=== PATIENT | female | born 1985 | race Two or more races ===

== ENCOUNTER 2016-12-31 06:24 | Inpatient (IN) | payer MEDICAID ==
[2016-12-30 10:27] LABS: ABSOLUTE BASOPHILS # (AUTO) 0.1 10^3/uL (0.0-0.2); ABSOLUTE EOSINOPHILS # (AUTO) 0.2 10^3/uL (0.0-0.6); ABSOLUTE LYMPHOCYTES (AUTO) 2.1 10^3/uL (0.5-4.7); ABSOLUTE MONOCYTES (AUTO) 0.8 10^3/uL (0.1-1.4); ABSOLUTE NEUT (AUTO) 9.6 10^3/uL (1.7-8.2); BASOPHILS % (AUTO) 0.4 % (0-2); EOSINOPHILS % (AUTO) 1.5 % (0-6); HEMATOCRIT 34.3 % (36.0-47.0); HEMOGLOBIN 10.3 g/dL (12.0-15.5); HGB HCT DIFFERENCE -3.4; LYMPHOCYTES % (AUTO) 16.7 % (13-45); MEAN CORPUSCULAR HEMOGLOBIN 19.2 pg (27.0-33.4); MEAN CORPUSCULAR HGB CONC 30.2 g/dL (32.0-36.0); MONOCYTES % (AUTO) 6.3 % (3-13); RED CELL DISTRIBUTION WIDTH 16.7 % (11.5-14.0); SEGMENTED NEUTROPHILS % (AUTO) 75.1 % (42-78); WHITE BLOOD COUNT 12.8 10^3/uL (4.0-10.5)
[2016-12-30 10:49] LABS: TOXIC GRANULATION 1+
[2016-12-30 10:50] LABS: ANISOCYTOSIS 1+; MEAN CORPUSCULAR VOLUME 64 fl (80-97); MICROCYTOSIS 3+; OVALOCYTES SLIGHT; POIKILOCYTOSIS SLIGHT
[2016-12-30 11:11] LABS: APPEARANCE,URINE SLIGHTLY-CLOUDY; BILIRUBIN,URINE NEGATIVE (NEGATIVE); GLUCOSE, URINE NEGATIVE (NEGATIVE); KETONES,URINE NEGATIVE (NEGATIVE); LEUKOCYTE ESTERASE,URINE MODERATE (NEGATIVE); NITRITE,URINE NEGATIVE (NEGATIVE); PROTEIN,URINE NEGATIVE (NEGATIVE); URINE SPECIFIC GRAVITY 1.027; UROBILINOGEN,URINE NEGATIVE mg/dL (<2.0)
[2016-12-30 11:23] LABS: URINE BARBITURATES SCREEN NEGATIVE; URINE METHADONE SCREEN NEGATIVE; URINE OPIATES LOW NEGATIVE; URINE PHENCYCLIDINE SCREEN NEGATIVE
[~2016-12-31 06:24] MED LIST: LACTATED RINGERS 1000 ML IV PRN; LIDOCAINE 0.5% INJ-PF (5 MG/ML) 50 ML SDV SUBCUT PRN; RINGERS SOLUTION,LACTATED 1,000 ML IV PRN
[2016-12-31] MEDS ORDERED: OXYTOCIN 10 UNIT/ML VIAL ONE (06:59)
[2016-12-31] MEDS ORDERED: MIDAZOLAM 2 MG/2 ML INJ ONE (07:00)
[2016-12-31] MEDS ORDERED: EPHEDRINE SULFATE INJ 50 MG/1 ML AMPULE ONE (07:00)
[2016-12-31] MEDS ORDERED: FENTANYL CITRATE INJ/PF 100 MCG/2 ML AMPUL ONE (07:00)
[2016-12-31] MEDS ORDERED: FENTANYL CITRATE INJ/PF 250 MCG/5 ML AMPULE ONE (07:00)
[2016-12-31] MEDS ORDERED: ONDANSETRON HCL INJ/PF 4 MG/2 ML SDV ONE (07:01)
[2016-12-31] MEDS ORDERED: OXYTOCIN/NORMAL SALINE 20 UNIT/1,000 ML RTUINJ ONE (07:01)
[2016-12-31] MEDS ORDERED: CLINDAMYCIN 900 MG/D5W RTU 50 ML IV PRN (08:07)
[2016-12-31] MEDS ORDERED: PROMETHAZINE HCL INJ 25 MG/1 ML VIAL IV PRN (09:59)
[2016-12-31] MEDS ORDERED: MEPERIDINE HCL/PF INJ 25 MG/1 ML DISP.SYRIN IV PRN (09:59)
[2016-12-31] MEDS ORDERED: FENTANYL CITRATE INJ/PF 100 MCG/2 ML AMPUL IV PRN ×3 (09:59)
[2016-12-31] MEDS ORDERED: DIPHENHYDRAMINE HCL 50 MG/ML VIAL IV PRN (09:59)
[2016-12-31] MEDS ORDERED: MORPHINE SULFATE 10 MG/ML INJ IV PRN ×2 (09:59→17:59)
[2016-12-31] MEDS ORDERED: NALBUPHINE HCL INJ 10 MG/1 ML AMPULE IM ONE (10:00)
--- NOTE | 2016-12-31 10:48 | OPERATIVE REPORT E ---
Operative Report NAME: MARIA FERNANDA TYSON : 1985 AGE: 31Y DATE OF SURGERY: 12/31/2016 ROOM: 218 PREOPERATIVE DIAGNOSES: 1. IUP at 39 weeks. 2. Previous section x2. 3. Undesired fertility. POSTOPERATIVE DIAGNOSES: 1. IUP at 39 weeks. 2. Previous section x2. 3. Undesired fertility. TECHNICAL PROCEDURE: Low-transverse hysterotomy and section with Oracle bilateral tubal ligation. SURGEON: GENEVIEVE APONTE M.D. ANESTHESIA: Dr. Quintero with spinal. FINDINGS: Male cephalic presentation with Apgars of 8 and 9. COMPLICATIONS: None. ESTIMATED BLOOD LOSS: 600 mL. SPECIMENS REMOVED: Bilateral fallopian tubes. PROCEDURE IN DETAIL: Patient was taken to the operating room, prepared and draped in a normal sterile fashion in a supine position with a leftward tilt. A transverse skin incision was made with a scalpel and carried through to the underlying layer of fascia with the same scalpel. The fascia was incised in the midline and extended laterally. The rectus muscle was dissected from the fascia sharply with Nahun. The rectus muscle was divided and the peritoneal cavity was entered bluntly with good visualization of the bladder and the uterus. A bladder blade was inserted. The hysterotomy was nicked with a scalpel and extended laterally with surgeon finger fracture. The amniotomy was performed with a hemostat and the infant was then delivered atraumatically. The nose and mouth were suctioned with a suction bulb, the cord was clamped and cut, and the was handed off to awaiting law tutor. Cord blood was collected. The placenta was removed manually. The uterus was exteriorized and cleared of clots and debris. The hysterotomy was closed with 0 Monocryl in a running, locked fashion. A second layer was used in an imbricating stitch to ensure hemostasis. Attention was then turned to the tubal ligation where the left fallopian tube was grasped with a Steffany and the mesosalpinx was divided with the Bovie. A large portion of the tube was tied off with 2 pieces of 2-0 chromic and the intermediate section was removed with Metzenbaums. The pedicles were Bovied for hemostasis. This was repeated on the right without any difficulty. The uterus was then returned to the abdomen. The peritoneal cavity was cleared of clots and debris. The rectus muscle and peritoneum were reapproximated with a mattress stitch of 2-0 chromic. The fascia was closed with 0 Vicryl. The subcutaneous layer was closed with plain catgut. The skin was closed with 4-0 Vicryl. The patient tolerated the procedure well. Sponge, lap and needle counts were correct x2 and the patient was taken to recovery in stable condition. DICTATING PHYSICIAN: GENEVIEVE APONTE M.D. [id number] PHY#: [id number] ID: [id number] JOB#: [id number] ACCT: [id number] cc:GENVEIEVE APONTE M.D. >
[2016-12-31] MEDS: FENTANYL CITRATE INJ/PF 100 MCG/2 ML AMPUL ONE ×4 (11:25→12:06)
[2016-12-31] MEDS ORDERED: DIPH/PERTUSS(ACELL)/TETANUS VAC/PF 0.5 ML SYR (>=10YO) IM PRN (13:39)
[2016-12-31] MEDS ORDERED: MORPHINE SULFATE 10 MG/ML INJ IM PRN (13:39)
[2016-12-31] MEDS ORDERED: OXYTOCIN/NORMAL SALINE 20 UNIT/1,000 ML RTUINJ INJ PRN (13:39)
[2016-12-31] MEDS ORDERED: OXYCODONE-ACETAMINOPHEN 5-325 MG TABLET PO PRN (13:39)
[2016-12-31] MEDS ORDERED: SIMETHICONE 80 MG TAB.CHEW PO PRN (13:39)
[2016-12-31] MEDS ORDERED: PROMETHAZINE HCL INJ 25 MG/1 ML VIAL IM PRN (13:39)
[2016-12-31] MEDS ORDERED: MEASLES,MUMPS&RUBELLA VACC/PF 0.5 ML VIAL SUBCUT PRN (13:39)
[2016-12-31] MEDS ORDERED: ACETAMINOPHEN 325 MG TABLET PO PRN (13:39)
[2016-12-31] MEDS ORDERED: ACETAMINOPHEN 100 ML IV ONE (14:00)
[2016-12-31] MEDS: KETOROLAC TROMETHAMINE INJ/PF 30 MG/1 ML SDV IV SCH ×2 (14:01→21:45)
[2016-12-31 15:40] LABS: PATH REVIEW PATHOLOGIST REVIEWED
[2016-12-31] MEDS: OXYCODONE-ACETAMINOPHEN 5-325 MG TABLET PO PRN ×2 (16:32→20:33)
[2016-12-31] MEDS: DOCUSATE SODIUM 100 MG CAPSULE PO SCH (17:18)
[2016-12-31] MEDS ORDERED: HYDROMORPHONE HCL INJ/PF 2 MG/ML AMPULE ONE (22:43)
[2016-12-31] MEDS ORDERED: HYDROMORPHONE HCL INJ/PF 2 MG/ML AMPULE IV ONE (22:45)
[2017-01-01] MEDS: OXYCODONE-ACETAMINOPHEN 5-325 MG TABLET PO PRN ×2 (01:47→06:43)
[2017-01-01] MEDS: KETOROLAC TROMETHAMINE INJ/PF 30 MG/1 ML SDV IV SCH (05:23)
[2017-01-01 08:00] LABS: HEMATOCRIT 28.5 % (36.0-47.0); HEMOGLOBIN 8.7 g/dL (12.0-15.5); HGB HCT DIFFERENCE -2.4; MEAN CORPUSCULAR HEMOGLOBIN 19.4 pg (27.0-33.4); MEAN CORPUSCULAR HGB CONC 30.6 g/dL (32.0-36.0); MEAN CORPUSCULAR VOLUME 64 fl (80-97); RED BLOOD COUNT 4.48 10^6/uL (3.72-5.28); RED CELL DISTRIBUTION WIDTH 16.7 % (11.5-14.0); WHITE BLOOD COUNT 10.9 10^3/uL (4.0-10.5)
[2017-01-01] MEDS: DOCUSATE SODIUM 100 MG CAPSULE PO SCH ×2 (09:13→17:38)
--- NOTE | 2017-01-01 09:39 | PDOC PROGRESS REPORT ---
Subjective-OB Subjective: Post Delivery Day: 31 year old. Denies any needs at this time. Has had some dizziness, thinking due to pain meds. Physical Exam (OB) Vital Signs: Temp Pulse Resp BP Pulse Ox 98.4 F 87 16 100/59 L 100 01/01/17 07:47 01/01/17 09:00 01/01/17 08:00 01/01/17 09:00 01/01/17 07:47 Intake & Output 12/31/16 01/01/17 01/02/17 06:59 06:59 06:59 Intake Total 4750 120 Output Total 2580 Balance 2170 120 Weight 114.31 kg 113.398 kg - Dressing Removed: No - honeycomb post op dressing Incision: Dressing Note: Some bright red bleeding under opsite dressing. - Lochia Lochia Amount: Small 10-25 ml Lochia Color: Rubra/Red - Abdomen Description: Tender, Soft Hernia Present: No Bowel Sounds: Hypoactive Flatus Presence: Absent Stool: No Fundal Description: Midline Fundal Height: u/u - u/2 Objective-Diagnostic Laboratory: 01/01/17 07:40 12/30/16 01/01/17 09:54 07:40 WBC 12.8 H 10.9 H RBC 5.40 H 4.48 Hgb 10.3 L 8.7 L Hct 34.3 L 28.5 L MCV 64 L 64 L MCH 19.2 L 19.4 L MCHC 30.2 L 30.6 L RDW 16.7 H 16.7 H Plt Count 333 229 Seg Neutrophils % 75.1 Lymphocytes % 16.7 Monocytes % 6.3 Eosinophils % 1.5 Basophils % 0.4 Absolute Neutrophils 9.6 H Absolute Lymphocytes 2.1 Absolute Monocytes 0.8 Absolute Eosinophils 0.2 Absolute Basophils 0.1
[2017-01-01] MEDS: PRENATAL VITAMIN W-O CA NO5/FE FUMARATE/FA CAPSULE PO SCH (10:46)
[2017-01-01] MEDS: IBUPROFEN 800 MG TABLET PO SCH ×2 (11:35→17:37)
[2017-01-01] MEDS ORDERED: OXYCODONE HCL IR 5 MG TABLET PO PRN (11:52)
[2017-01-01] MEDS: OXYCODONE HCL IR 5 MG TABLET PO PRN ×3 (12:22→20:51)
[2017-01-02] MEDS: OXYCODONE HCL IR 5 MG TABLET PO PRN ×3 (00:44→10:07)
[2017-01-02] MEDS: IBUPROFEN 800 MG TABLET PO SCH ×3 (00:44→11:25)
[2017-01-02 09:37] VITALS: BP 94/58
[2017-01-02] MEDS: DOCUSATE SODIUM 100 MG CAPSULE PO SCH (10:04)
[2017-01-02] MEDS: PRENATAL VITAMIN W-O CA NO5/FE FUMARATE/FA CAPSULE PO SCH (10:04)
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
--- NOTE | 2017-01-22 09:22 | PDOC DELIVERY SUMMARY ---
Delivery Summary - Maternal Hx : V Hx # Term Pregnancies: 2 Hx Total # of Abortions (Sponateous & Elective): 2 ORALIA: 01/07/17 Gestational Age: 39 Time of Rupture: 09:41 Fluids: Clear - Delivery Presentation: Vertex Heart Rate Monitoring: Done Pre-Operatively Support Person Present: Yes Location: OR : Scheduled Placenta: Within Normal Limits Delivery of Placenta Date: 12/31/16 Delivery of Placenta Time: 09:44 - Medications Type of Anesthesia:: Spinal - Assess and Care Baby 1 Male Delivery of Date: 12/31/16 Delivery of Time: 09:42 at 1 minute: 8 at 5 minutes: 9 Preprinted Number On Band: [id number] Infant Skin to Skin: No To Nursery At: 09:48 Mode of Transport: Bassinet Infant Delivery Weight: 3560 kg Delivery Length: 20.5 in - Delivery Personnel Adjunct Spanish Instructor: MIRIAM REDMAN Nursery RN: TRINIDAD MANZO MD: GENEVIEVE APONTE
== END 2017-01-02 16:59 | disposition home or self-care (01) | DRG 765 ==
LOC: 2S 06:24
PROVIDERS: ADMIT Obstetrics & Gynecology; ATTEND Obstetrics & Gynecology
PROC: 0UB70ZZ Excision of Bilateral Fallopian Tubes, Open Approach (ICD-10-PCS; 2016-12-31)
PROC: 4A1HXCZ Monitoring of Products of Conception, Cardiac Rate, External Approach (ICD-10-PCS; 2016-12-31)
PROC: 10D00Z1 Extraction of Products of Conception, Low, Open Approach (ICD-10-PCS; principal; 2016-12-31 09:30)
PROC: 3E0234Z Introduction of Serum, Toxoid and Vaccine into Muscle, Percutaneous Approach (ICD-10-PCS; 2017-01-02)
DX: O34.211 Maternal care for low transverse scar from previous cesarean delivery (principal); D62 Acute posthemorrhagic anemia; Z68.43 Body mass index [BMI] 50.0-59.9, adult; O99.344 Other mental disorders complicating childbirth; O99.824 Streptococcus B carrier state complicating childbirth; O99.214 Obesity complicating childbirth; E66.01 Morbid (severe) obesity due to excess calories; F41.9 Anxiety disorder, unspecified; O99.02 Anemia complicating childbirth; Z83.3 Family history of diabetes mellitus; Z87.81 Personal history of (healed) traumatic fracture; Z3A.39 39 weeks gestation of pregnancy; Z30.2 Encounter for sterilization; Z37.0 Single live birth; Z88.0 Allergy status to penicillin; Z23 Encounter for immunization
CPT/HCPCS: 1961; 36415; 59025; 80307; 81001; 85025; 85027; 86850; 86900; 86901; 88302; 90707; 94799; J0131; J1170; J1885; J2250; J2270; J2300; J2405; J2590; J3010; J3490; J7120

== ENCOUNTER 2018-04-13 19:08 | Emergency (ER) | payer MEDICAID, OTHER ==
[2018-04-13] MEDS ORDERED: HYDROCODONE/ACETAMINOPHEN 5-325 MG TABLET PO ONE (22:09)
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
[2018-04-14 00:04] VITALS: BP 123/69
[2018-04-14] MEDS ORDERED: HYDROCODONE/ACETAMINOPHEN 5-325 MG (6 TAB/ER DISP) PO PRN (00:06)
== END 2018-04-14 00:04 | disposition home or self-care (01) ==
LOC: ER 19:08
DX: S80.11XA Contusion of right lower leg, initial encounter (principal); M54.2 Cervicalgia; R10.30 Lower abdominal pain, unspecified; V43.52XA Car driver injured in collision with other type car in traffic accident, initial encounter; Z88.0 Allergy status to penicillin; Z86.711 Personal history of pulmonary embolism
CPT/HCPCS: 71045; 72125; 74177; 99283